=== PATIENT | male | born 1940 | race Caucasian/White ===

== ENCOUNTER 2016-12-14 05:23 | Emergency (ER) | payer MEDICARE ==
[2016-12-14] MEDS ORDERED: Ibuprofen TAB* 600 MG PO ONE (07:04)
[2016-12-14] MEDS ORDERED: Sulfamethox/Trimethoprim DS 800/160* TAB PO ONE (07:05)
[2016-12-14 07:18] VITALS: BP 107/69
--- NOTE | 2016-12-14 07:23 | ED ---
Skin Complaint - HPI Summary HPI Summary: Patient presents with a red bump on his left buttock that began approximately 5 days ago. He has a history of MRSA and worries this is turning into another abscess. He has been applying warm compresses and using ibuprofen for pain. He denies drainage, fevers or red streaks. - History of Current Complaint Chief Complaint: EDRashSkinAbscess Time Seen by Provider: 12/14/16 06:38 Stated Complaint: GROWTH ON LEFT SIDE OF BUTTUCKS Hx Obtained From: Patient Onset/Duration: Started Days Ago, Atraumatic Skin Exposure Onset/Duration: Days Ago Timing: Constant Onset Severity: Mild Current Severity: Moderate Pain Intensity: 6 Skin Location: Other: - left buttock Character: Pain, Redness Aggravating Symptom(s): Touch Alleviating Symptom(s): Nothing Associated Signs & Symptoms: Tenderness Related History: Other: - ingrown hair - Allergy/Home Medications Allergies/Adverse Reactions: Allergies Allergy/AdvReac Type Severity Reaction Status Date / Time No Known Allergies Allergy Verified 12/14/16 05:38 PMH/Surg Hx/FS Hx/Imm Hx Endocrine/Hematology History: Denies: Hx Diabetes Cardiovascular History: Reports: Hx Angina, Hx Coronary Artery Disease, Hx Hypercholesterolemia, Hx Hypertension, Other Cardiovascular Problems/Disorders - AORTIC ANEURYSM, CAD, HIGH CHOLESTEROL Denies: Hx Valvular Heart Disease Respiratory History: Denies: Hx Asthma GI History: Reports: Hx Gastroesophageal Reflux Disease - history of History: Reports: Other Problems/Disorders - LEFT HYDROCELE Denies: Hx Renal Disease Sensory History: Reports: Hx Contacts or Glasses, Hx Hearing Aid - does not use it Opthamlomology History: Reports: Hx Contacts or Glasses Psychiatric History: Reports: Hx Depression - last year since passed been slightly depressed - Surgical History Surgery Procedure, Year, and Place: 2006 double bypass open heart surgery. cholecystectomy Hx Anesthesia Reactions: No - Immunization History Date of Tetanus Vaccine: unknown Infectious Disease History: Yes Infectious Disease History: Reports: Hx of Known/Suspected MRSA - Left knee Denies: Hx Shingles, Hx Tuberculosis, Hx Known/Suspected VRE, Hx Known/ Suspected VRSA, History Other Infectious Disease, Traveled Outside the [place] in Last 30 Days - Family History Known Family History: Positive: Cardiac Disease - Social History Occupation: Retired Lives: With Family Alcohol Use: None Alcohol Amount: 1-2 glasses of wine Hx Substance Use: No Substance Use Type: Reports: None Hx Tobacco Use: Yes Smoking Status (MU): Former Smoker Amount Used/How Often: 1 PPD Length of Time of Smoking/Using Tobacco: 42 YEARS Have You Smoked in the Last Year: No Review of Systems Positive: Other - dime size erythematous indurated raised papule without fluctuance All Other Systems Reviewed And Are Negative: Yes Physical Exam Triage Information Reviewed: Yes Vital Signs On Initial Exam: Initial Vitals Temp Pulse Resp BP Pulse Ox 97.0 F 71 20 138/74 98 12/14/16 05:29 12/14/16 05:29 12/14/16 05:29 12/14/16 05:29 12/14/16 05:29 Vital Signs Reviewed: Yes Appearance: Positive: Well-Appearing, Well-Nourished, Pain Distress Skin: Positive: Warm, Skin Color Reflects Adequate Perfusion, Dry, Tender, Soft , Erythema @ - dime size erythematous indurated raised papule without fluctuance Head/Face: Positive: Normal Head/Face Inspection Eyes: Positive: EOMI, JATINDER, Conjunctiva Clear ENT: Positive: Hearing grossly normal Respiratory/Lung Sounds: Positive: Breath Sounds Present Cardiovascular: Positive: RRR Musculoskeletal: Positive: Strength/ROM Intact. Negative: Edema Left, Edema Right Neurological: Positive: Sensory/Motor Intact, Alert, Oriented to Person Place, Time, NV Bundle Intact Distally, Normal Gait Psychiatric: Positive: Affect/Mood Appropriate AVPU Assessment: Alert - [place] Coma Scale Coma Scale Total: 15 Diagnostics - Vital Signs Vital Signs Temp Pulse Resp BP Pulse Ox 12/14/16 06:30 60 105/66 94 12/14/16 06:00 62 105/70 94 12/14/16 05:52 62 115/72 95 12/14/16 05:42 64 96 12/14/16 05:39 97.4 F 65 16 12/14/16 05:29 97.0 F 71 20 138/74 98 - Laboratory Lab Statement: Any lab studies that have been ordered have been reviewed, and results considered in the medical decision making process. Course/Dx - Differential Diagnoses - Skin Complaint Differential Diagnoses: Abscess, Allergic Reaction, Cellulitis, Contact Dermatitis, Foreign Body, Impetigo, Local Allergic Reaction, MRSA, Urticaria - Diagnoses Provider Diagnoses: Abscess Discharge - Discharge Plan Condition: Stable Disposition: HOME Prescriptions: Sulfamethox/Trimethoprim DS* [Bactrim DS 800/160 TAB*] 1 tab PO BID #19 tab Patient Education Materials: Abscess (ED) Referrals: Aurelia Wylie MD [Primary Care Provider] - Additional Instructions: Please take the medication prescribed until it is completely gone. Use ibuprofen to reduce swelling and pain. Continue warm soaks daily as needed. Follow-up with your primary care provider in 2-3 days for re-evaluation to insure you are improving. Return to the emergency department if symptoms worsen.
== END 2016-12-14 07:19 | disposition home or self-care (01) ==
LOC: ED 05:23
DX: L02.31 Cutaneous abscess of buttock (principal); Z87.891 Personal history of nicotine dependence; I10 Essential (primary) hypertension; E78.00 Pure hypercholesterolemia, unspecified
CPT/HCPCS: 99282; A9270-GY

== ENCOUNTER 2018-01-23 19:45 | Observation (INO) | payer MEDICARE ==
[2018-01-23] MEDS ORDERED: Aspirin 81 mg CHEW TAB* 81 MG TAB.CHEW PO ONE (20:18)
--- NOTE | 2018-01-23 20:32 | RAD ---
Indication: Chest pain. Single frontal view of the chest performed at 2021 hours was reviewed. Comparison is made with previous exam dated February 17, 2016. No mediastinal shift is noted. Heart is of normal size and configuration. Lung pillai appear clear. IMPRESSION: NO ACTIVE CARDIOPULMONARY DISEASE IS NOTED.
[2018-01-23 20:41] LABS: ABS Basophils 0.1 10^3/ul (0-0.2); ABS Eosinophils 0.2 10^3/ul (0-0.6); ABS Lymphocytes 1.1 10^3/ul (1.0-4.8); ABS Monocytes 0.8 10^3/ul (0-0.8); ABS Neutrophils 4.5 10^3/ul (1.5-7.7); ABS Nucleated RBC 0 10^3/ul; Eosinophil % 3.7 % (0-6); Hematocrit 44 % (42-52); Hemoglobin 15.3 g/dl (14.0-18.0); Lymphocyte % 16.8 % (25-47); Mean Corpuscular HGB Conc 35 g/dl (31-36); Mean Corpuscular Hemoglobin 31 pg (27-31); Mean Corpuscular Volume 89 fL (80-94); Mean Platelet Volume 8.1 um3 (7.4-10.4); Nucleated Red Blood Cells % 0; Platelet Count 158 10^3/ul (150-450); Red Blood Count 4.99 10^6/ul (4.0-5.4); Red Cell Distribution Width 14 % (10.5-15); White Blood Count 6.7 10^3/ul (3.5-10.8)
[2018-01-23 20:49] LABS: INR 1.05 (0.77-1.02)
[2018-01-23 21:06] LABS: EGFR Non-African American 82.3 (>60)
[2018-01-23] MEDS ORDERED: Ondansetron 40 MG VIAL* 2 MG/ML 20 ML VIAL IV PRN (22:11)
[2018-01-23] MEDS ORDERED: Acetaminophen TAB* 325 MG PO PRN (22:11)
--- NOTE | 2018-01-23 22:21 | ED ---
Brad Paige Jade, scribed for Tiago Ziegler MD on 01/23/18 at 2021 . HPI Chest Pain - HPI Summary HPI Summary: Pt is a 77 y/o male BIBA with a chief complaint of CP since 19:00. He states he was sitting down playing bingo when the pain started, and is described as mid- sternal radiating to the left shoulder. He took 2 NTG before the ambulance arrived, which resolved the pain. He denies any N/V. Pt has had prior episodes of CP, but this episode is the worst in a while. He had a brief episode this morning for which he took NTG. PMHx MA in 2006, and aortic aneurysm. PSHx CABG in 2006, and aortic stent in November (2 months ago). Pt takes 81 mg Aspirin daily. - History of Current Complaint Chief Complaint: EDChestPainROMI Time Seen by Provider: 01/23/18 20:05 Hx Obtained From: Patient Onset/Duration: Started Hours Ago - 19:00, Resolved Current Severity: None Pain Intensity: 0 Pain Scale Used: 0-10 Numeric Chest Pain Location: Mid Sternal Chest Pain Radiates: Yes Chest Pain Radiates To:: Shoulder - Left Aggravating Factor(s): Nothing Alleviating Factor(s): NTG 123 Associated Signs and Symptoms: Positive: Negative. Negative: Nausea, Vomiting - Allergy/Home Medications Allergies/Adverse Reactions: Allergies Allergy/AdvReac Type Severity Reaction Status Date / Time No Known Allergies Allergy Verified 10/03/17 11:22 Home Medications: Home Medications Aspirin EC TAB* [Ecotrin EC Low Dose 81 MG*] 81 mg PO DAILY 01/23/18 [History Confirmed 01/23/18] Isosorbide Mononitrate ER TAB* [Imdur ER TAB*] 60 mg PO DAILY 01/23/18 [History Confirmed 01/23/18] Losartan TAB* [Cozaar TAB*] 50 mg PO DAILY 01/23/18 [History Confirmed 01/23/18] Metoprolol Succinate XL TAB* [Toprol XL TAB*] 50 mg PO DAILY 01/23/18 [History Confirmed 01/23/18] Simvastatin (NF) [Zocor (NF)] 40 mg PO DAILY 01/23/18 [History Confirmed ] PMH/Surg Hx/FS Hx/Imm Hx Endocrine/Hematology History: Denies: Hx Diabetes Cardiovascular History: Reports: Hx Angina, Hx Coronary Artery Disease, Hx Hypercholesterolemia, Hx Hypertension, Hx Myocardial Infarction, Other Cardiovascular Problems/Disorders - AORTIC ANEURYSM, CAD, HIGH CHOLESTEROL Denies: Hx Valvular Heart Disease Respiratory History: Denies: Hx Asthma GI History: Reports: Hx Gastroesophageal Reflux Disease - history of History: Reports: Other Problems/Disorders - LEFT HYDROCELE Denies: Hx Renal Disease Sensory History: Reports: Hx Contacts or Glasses, Hx Hearing Aid - does not use it Opthamlomology History: Reports: Hx Contacts or Glasses Psychiatric History: Reports: Hx Depression - last year since passed been slightly depressed - Surgical History Surgery Procedure, Year, and Place: 2006 double bypass open heart surgery. cholecystectomy Hx Anesthesia Reactions: No - Immunization History Date of Tetanus Vaccine: unknown Infectious Disease History: No Infectious Disease History: Reports: Hx of Known/Suspected MRSA - Left knee Denies: Hx Shingles, Hx Tuberculosis, Hx Known/Suspected VRE, Hx Known/ Suspected VRSA, History Other Infectious Disease, Traveled Outside the [place] in Last 30 Days - Family History Known Family History: Positive: Cardiac Disease - Social History Alcohol Use: None Alcohol Amount: 1-2 glasses of wine Hx Substance Use: No Substance Use Type: Reports: None Hx Tobacco Use: Yes Smoking Status (MU): Former Smoker Amount Used/How Often: 1 PPD Length of Time of Smoking/Using Tobacco: 42 YEARS Have You Smoked in the Last Year: No Review of Systems Constitutional: Negative Positive: Chest Pain Negative: Vomiting, Nausea All Other Systems Reviewed And Are Negative: Yes Physical Exam - Summary Physical Exam Summary: VITAL SIGNS: Reviewed. GENERAL: ~Patient is a well-developed and nourished male who is lying comfortable in the stretcher. Patient is not in any acute respiratory distress. HEAD AND FACE: No signs of trauma. No ecchymosis, hematomas or skull depressions. No sinus tenderness. EYES: PERRLA, EOMI x 2, No injected conjunctiva, no nystagmus. EARS: Hearing grossly intact. Ear canals and tympanic membranes are within normal limits. MOUTH: Oropharynx within normal limits. NECK: Supple, trachea is midline, no adenopathy, no JVD, no carotid bruit, no c- spine tenderness, neck with full ROM. CHEST: Symmetric, no tenderness at palpation LUNGS: Clear to auscultation bilaterally. No wheezing or crackles. CVS: Regular rate and rhythm, S1 and S2 present, no murmurs or gallops appreciated. ABDOMEN: Soft, non-tender. No signs of distention. No rebound no guarding, and no masses palpated. Bowel sounds are normal. EXTREMITIES: FROM in all major joints, no edema, no cyanosis or clubbing. NEURO: Alert and oriented x 3. No acute neurological deficits. Speech is normal and follows commands. SKIN: Dry and warm Triage Information Reviewed: Yes Vital Signs On Initial Exam: Initial Vitals Temp Pulse Resp BP Pulse Ox 98.6 F 70 20 140/90 96 01/23/18 19:46 01/23/18 19:46 01/23/18 19:46 01/23/18 19:46 01/23/18 19:46 Vital Signs Reviewed: Yes Diagnostics - Vital Signs Vital Signs Temp Pulse Resp BP Pulse Ox 01/23/18 19:46 98.6 F 70 20 140/90 96 - Laboratory Result Diagrams: 01/23/18 20:32 01/23/18 20:32 Lab Statement: Any lab studies that have been ordered have been reviewed, and results considered in the medical decision making process. - Radiology CXR Xray Interpretation: No Acute Changes - NO ACTIVE CARDIOPULMONARY DISEASE IS NOTED. ED physician reviewed this radiology report. Radiology Interpretation Completed By: Radiologist - EKG 19:51 Cardiac Rate: NL - 68 bpm EKG Rhythm: Sinus Rhythm EKG Interpretation: T-wave inversions in septal leads. Re-Evaluation - Re-Evaluation First Eval Re-Evaluation Time: 21:37 Change: Improved Comment: Discussed results and admission. Chest Pain Course/Dx - Course Course Of Treatment: A 77 y/o male BIBA with a CC of CP since 19:00, which radiates to the left shoulder. He took 2 NTG before the ambulance arrived, which resolved the pain. He denies any N/V. Prior episodes of CP, but this episode is the worst in a while. He had a brief episode this morning for which he took NTG. PMHx MA in 2006, and aortic aneurysm. PSHx CABG in 2006, and aortic stent in November (2 months ago). Pt takes 81 mg Aspirin daily. A CXR reveals no cardiopulmonary disease. An EKG reveals T-wave inversions in septal leads. Blood work was done, with results including a 0.00 Troponin. In the ED course pt received Aspirin. Patient will be admitted with follow up from Dr. Somers. Pt is agreeable with this plan. - Diagnoses Provider Diagnoses: Chest pain - Provider Notifications Discussed Care Of Patient With: Michaelle Somers Time Discussed With Above Provider: 22:00 Instructed by Provider To: Other - Accepts patient for admission. Discharge - Sign-Out/Discharge Documenting (check all that apply): Discharge/Admit/Transfer - Admit - Discharge Plan Condition: Stable Disposition: ADMITTED TO [facility] Referrals: Denis Vizcaino MD [Primary Care Provider] - The documentation as recorded by the Brad rome Jade accurately reflects the service I personally performed and the decisions made by , Tiago Ziegler MD.
[2018-01-24 02:40] LABS: ABS Basophils 0.1 10^3/ul (0-0.2); ABS Eosinophils 0.3 10^3/ul (0-0.6); ABS Lymphocytes 1.5 10^3/ul (1.0-4.8); ABS Monocytes 0.9 10^3/ul (0-0.8); ABS Neutrophils 4.5 10^3/ul (1.5-7.7); ABS Nucleated RBC 0 10^3/ul; Eosinophil % 4.1 % (0-6); Hematocrit 42 % (42-52); Hemoglobin 14.3 g/dl (14.0-18.0); Lymphocyte % 20.5 % (25-47); Mean Corpuscular HGB Conc 34 g/dl (31-36); Mean Corpuscular Hemoglobin 30 pg (27-31); Mean Corpuscular Volume 89 fL (80-94); Mean Platelet Volume 8.6 um3 (7.4-10.4); Nucleated Red Blood Cells % 0; Platelet Count 150 10^3/ul (150-450); Red Blood Count 4.73 10^6/ul (4.0-5.4); Red Cell Distribution Width 14 % (10.5-15); White Blood Count 7.2 10^3/ul (3.5-10.8)
[2018-01-24 02:44] LABS: INR 1.06 (0.77-1.02)
[2018-01-24 02:55] LABS: EGFR Non-African American 73.7 (>60)
[2018-01-24] MEDS ORDERED: Heparin VIAL(*) 5000 UNITS/ML VIAL (FIVE THOUSAND) SUBCUT SCH (06:00)
--- NOTE | 2018-01-24 08:10 | HP ---
CC: Dr. Vizcaino; Dr. Wylie * HISTORY AND PHYSICAL: DATE OF ADMISSION: 01/23/18 PRIMARY CARE PROVIDER: Dr. Vizcaino. ATTENDING PHYSICIAN WHILE IN THE HOSPITAL: Dr. Michaelle Wahl * (report dictated by Sage Aparicio NP). CHIEF COMPLAINT: Chest pain. HISTORY OF PRESENT ILLNESS: Mr. Diaz is a 77-year-old male patient. He has a history of CAD; history of AAA, status post stenting of the AAA in November of this year at [facility]. He has a history of hypertension, hyperlipidemia, GERD, and a history of MD. He has also had a CABG. He comes into the ED today. He says at 11 o'clock today, he had an episode of sharp stabbing chest pain in the left chest that did not radiate to the jaw or the arm. He took a nitro, went away, it only lasted a few seconds. He says he has not been having any exertional chest pain. He had no associated nausea or diaphoresis or shortness of breath with, this morning, his chest pain. He went about his day, he actually at 1900 david was calling [employer] for [employer] and while doing this, he was not exerting himself, he started having a sharp chest discomfort again lasting seconds. No associated nausea, but at this time, he did get sweaty. He also took 2 nitro, the pain went away, but given his history and the concern by the fellow [employer] players, they got him into the ER to be evaluated. He denies any calf tenderness. There was no associated shortness of breath. He did state that a couple of days ago, he felt stuffed up and congested. He had a runny nose, but that is improved. There have been no fevers or chills. He has not been coughing. He has no calf tenderness or swelling and he denies feeling any shortness of breath and the discomfort is now gone. He came into the ED today because of his risk factors for acute coronary syndrome. We were asked to evaluate for admission. PAST MEDICAL HISTORY: Significant for: 1. CAD. 2. AAA. 3. Hypertension. 4. Hyperlipidemia. 5. GERD. 6. History of MD. PAST SURGICAL HISTORY: The patient had: 1. CABG. 2. Cholecystectomy. 3. AAA with stent. MEDICATIONS: Home meds include: 1. Zocor 40 mg daily. 2. Cozaar 50 mg daily. 3. Imdur 60 mg daily. 4. Aspirin 81 mg daily. 5. Toprol-XL 50 mg p.o. daily. ALLERGIES TO MEDICATIONS: Include no known drug allergies. FAMILY HISTORY: Mother had a history of MD. Father had a history of pneumonia , both . SOCIAL HISTORY: He is a former smoker. He does drink beer on a nightly basis. Surrogate decision maker is his , Dee Dee. REVIEW OF SYSTEMS: There is no documented fever. He denies having any significant weight change. Denies having any double vision. There is no ear discharge. There was no rhinorrhea today, he did have some a couple of days ago. There was chest pain from HPI. There was no orthopnea or nocturnal dyspnea. No abdominal pain. No nausea, no vomiting. No dysuria, no frequency. No seizure, no loss of consciousness. No pruritus and no skin ulcerations. Review of 14 systems was completed, all others negative. PHYSICAL EXAMINATION GENERAL: At this time, Mr. Diaz is a 77-year-old male patient, appears to be well nourished, well developed. He does not appear to be in any acute distress. He is sitting in the ED stretcher. VITAL SIGNS: Blood pressure 124/84, respirations 23, O2 sat 95%, and temperature 98.6. HEENT: Head: Atraumatic and normocephalic. Eyes: EOMs intact. Sclerae anicteric and not pale. Throat: Oral mucosa appears to be moist. No oropharyngeal erythema. NECK: Supple. LUNGS: Clear to auscultation bilaterally. No wheezes, rales, or rhonchi. HEART: Sounds S1 and S2. He had a regular rate and rhythm. No murmurs, rubs, or gallops. ABDOMEN: Soft, flat, and nontender. Bowel sounds were present. EXTREMITIES: Pulses were 2+ throughout. He had no peripheral edema. No unilateral swelling. He is moving all 4 extremities with 5/5 strength. NEUROLOGIC: He is awake, he is alert, he is oriented x3. Tongue midline. Asp Net C Developer are equal. He had no gross focal deficits. SKIN: Intact. DIAGNOSTIC STUDIES/LAB DATA: WBC today was 6.7, RBC of 4.99, hemoglobin of 15.3, hematocrit of 44, and platelet count of 158. INR was 1.05, PTT of 27.2. Sodium 140, potassium 4, chloride 106, bicarb 25, BUN 8, creatinine 0.90, glucose 111, lactate 1.1, calcium 8.7, mag 2.0. Total bili 1.0, AST 20, ALT 14 , alk phos 70. First troponin was 0. BNP was 47. Albumin was 4.1. He did have a chest x-ray obtained today, impression: No active cardiopulmonary disease is noted. He did have an EKG obtained today, which when I look at it again, last EKG I have is from 2 years ago. EKG of today shows a normal sinus rhythm, but he has a new T- wave inversion in V2. No ST elevation. He also has t wave inverted in V1. When I look back, previously he was flat in V1, he was definitely upright in V2, but that T-wave inversion is now definitely new. Old medical records were reviewed. ASSESSMENT AND PLAN: Mr. Diaz is a 77-year-old male patient with pretty extensive cardiac history coming into the emergency department today with complaints of chest discomfort. We were asked to evaluate for admission. He will be admitted under observation status for: 1. Chest pain. Again, the story is atypical in the sense that he is having a sharp pain that is lasting only seconds and is nonexertional, fortunately. However, he has coronary artery disease, he has a history of a coronary artery bypass graft, hypertension, hyperlipidemia, and he is a former smoker; several risk factors. So, I do believe that he does warrant to get 2 more troponins and an EKG in the morning. In addition to this, go ahead and get a stress test tomorrow and continue to follow. With the recent illness, I will check an ESR and CRP, place him on telemetry. He is already on statin, aspirin, and beta- karrie. We will continue these medications. Should his troponins elevate, I would certainly consider heparin drip and getting a formal Cardiology evaluation. 2. Coronary artery disease. Again, we will continue aspirin, statin, and beta - karrie therapy, and he is on nitrates. 3. History of abdominal aortic aneurysm with recent stenting. I am going to get records from [facility]; I have asked for those. 4. Hypertension. Continue meds as prescribed. It appears to be stable. 5. Hyperlipidemia. I will check lipids in the morning. We will continue statin therapy. 6. Gastroesophageal reflux disease. Continue his current medical regimen. 7. DVT prophylaxis. I have ordered heparin subcu. 8. Code status. Full code. 9. Fluids, electrolytes, and nutrition. He can have a heart-healthy diet and n.p.o. after midnight. TIME SPENT: On the admission 60 minutes, greater than half the time was spent face- to-face with the patient obtaining my history and physical; other half the time was spent going over the plan of care with the patient and implementing plan of care. I did discuss the plan of care with my attending, Dr. Wahl; she is in agreement. SAGE APARICIO, CONSTANCE [id number]/CPS #: [id number] MTDBrittney
[2018-01-24] MEDS ORDERED: Losartan TAB* 25 MG PO SCH (09:00)
[2018-01-24] MEDS ORDERED: Isosorbide Mononitrate ER TAB* 60 MG PO SCH (09:00)
[2018-01-24] MEDS ORDERED: Aspirin EC TAB* 81 MG TAB.EC PO SCH (09:00)
[2018-01-24] MEDS ORDERED: Atorvastatin* 20 MG TAB PO SCH (09:00)
[2018-01-24] MEDS ORDERED: Metoprolol Succinate XL TAB* 50 MG PO SCH (09:00)
--- NOTE | 2018-01-24 11:14 | RAD ---
INDICATION: Chest pain, coronary artery disease. Shortness of breath. Reveals myocardial infarction and coronary artery bypass. Abnormal EKG. COMPARISON: April 22, 2015 TECHNIQUE: 10.300 mCi of Tc-99m Myoview were administered IV. SPECT images of the heart were obtained. Later on the same day. Under the direction of Dr. Rosado, an exercise stress test was performed. The patient achieved a peak heart rate of 128 bpm, 88 % of the age-predicted maximum. Subsequently, the patient was given an IV injection of 25.770 mCi Tc-99m Myoview. SPECT images of the heart were obtained and a gated wall motion study was performed. No CT for attenuation correction due to body habitus and limited range of motion of the arms. FINDINGS: Gated wall motion images were obtained at stress and demonstrate hypokinesia of the septum. The calculated left ventricular ejection fraction is 67 % at stress. Estimated LEFT ventricular end diastolic volume is 82 mL. TID 1.01. Mild diaphragmatic attenuation noted. No stress-induced reversible or fixed LEFT ventricular perfusion defects evident. IMPRESSION: 1. Hypokinesia of the septum. The LEFT ventricular ejection fraction remains within normal limits. Negative for LEFT ventricular dilatation. 2. No stress-induced reversible or fixed LEFT ventricular perfusion defects evident. ASSESSMENT: Low risk based on nuclear portion. Based on imaging criteria from ACC/AHA 2002 Guideline Update for the Management of Patients With Chronic Stable Angina Table 23. Noninvasive Risk Stratification.
[2018-01-24 11:55] VITALS: BP 137/75
--- NOTE | 2018-01-25 10:32 | DS ---
CC: Dr. Vizcaino; Dr. Wylie DISCHARGE SUMMARY: DATE OF ADMISSION: DATE OF DISCHARGE: 01/24/18. HOSPITAL COURSE: This 77-year-old man presented with atypical chest pain. He had a sharp shooting p ain going to the left side of his chest twice on the day of admission, once he was calling [employer] earlier at home. He was not under any particular stress of any kind on either event. He took nitr oglycerin, although he says he not really had this pain before. He thinks he may have had some angin a before and took nitroglycerin for this, but this is certainly a very infrequent recurrence. He did state to me that a couple of days ago, he was helping a friend move some furniture. My impression a t the end of this visit was that this is more likely the culprit rather than heart disease as his his tory was atypical for heart disease. He had no shortness of breath or other associated symptoms. EK G showed some nonspecific ST-T wave changes, 3 troponins were drawn, all of which were within normal limits. He had a nuclear medicine stress test on the day of discharge. There is hyperkinesis of the left septum, but there was no stress- induced perfusion defects. There were no fixed or reversible perfusion defects, ejection fraction was estimated at 67% at stress. The patient was discharged on all his usual home medications and will follow up with Dr. Vizcaino and h is mental health orderly. DISCHARGE DIAGNOSES: 1. Atypical chest pain. 2. Coronary artery disease. 3. Hypertension. 4. Hyperlipidemia. 5. Gastroesophageal reflux disease. DISCHARGE MEDICATIONS: 1. Simvastatin 40 mg daily. 2. Losartan 50 mg daily. 3. Isosorbide mononitrate 60 mg daily. 4. Aspirin 81 mg daily. 5. Metoprolol succinate 50 mg daily. [id number]/[facility] #: [id number]
== END 2018-01-24 13:34 | disposition home or self-care (01) ==
LOC: ED 19:45 → MEDTELE 21:38
PROVIDERS: ADMIT Internal Medicine; ATTEND Internal Medicine
DX: R07.89 Other chest pain (principal); I25.10 Atherosclerotic heart disease of native coronary artery without angina pectoris; I10 Essential (primary) hypertension; E78.5 Hyperlipidemia, unspecified; K21.0 Gastro-esophageal reflux disease with esophagitis; Z79.82 Long term (current) use of aspirin; I25.2 Old myocardial infarction; I71.4 Abdominal aortic aneurysm, without rupture; Z95.828 Presence of other vascular implants and grafts; Z95.5 Presence of coronary angioplasty implant and graft; Z87.891 Personal history of nicotine dependence
CPT/HCPCS: 36415; 71045; 78452; 80048; 80053; 80061; 83036; 83605; 83735; 83880; 84484; 85025; 85610; 85652; 85730; 86140; 87641; 93005; 93017; 99284; A9270-GY; A9502; G0378; J1644

== ENCOUNTER 2018-12-21 12:50 | Emergency (ER) | payer MEDICARE, OTHER ==
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
[2018-12-21 14:48] VITALS: BP 127/77
== END 2018-12-21 14:48 | disposition home or self-care (01) ==
LOC: ED 12:50
DX: S10.93XA Contusion of unspecified part of neck, initial encounter (principal); V49.40XA Driver injured in collision with unspecified motor vehicles in traffic accident, initial encounter; Y92.410 Unspecified street and highway as the place of occurrence of the external cause; I10 Essential (primary) hypertension; I25.2 Old myocardial infarction; I25.10 Atherosclerotic heart disease of native coronary artery without angina pectoris; I71.9 Aortic aneurysm of unspecified site, without rupture; E78.5 Hyperlipidemia, unspecified; K21.9 Gastro-esophageal reflux disease without esophagitis; J44.9 Chronic obstructive pulmonary disease, unspecified; M47.892 Other spondylosis, cervical region; Z87.891 Personal history of nicotine dependence; Z95.1 Presence of aortocoronary bypass graft
CPT/HCPCS: 70450; 72125; 99282

== ENCOUNTER 2019-05-13 10:26 | Day surgery (SDC) | payer MEDICARE ==
[~2019-05-13 10:26] MED LIST: Buffered Lidocaine 1% SYRIN* 1 ML/SYRINGE INTRADERM ONE; Trypan Blue 0.06% SOL* 0.5 ML BTL ONE
[2019-05-13] MEDS ORDERED: fentaNYL* 50 MCG/ML 2 ML VIAL (100 MCG VIAL) ONE (11:20)
[2019-05-13] MEDS ORDERED: Midazolam* 1 MG/ML 2 ML VIAL (2 MG) ONE (11:21)
[2019-05-13 14:19] VITALS: BP 141/85
[2019-05-13] MEDS ORDERED: Tropicamide 1% OPTH.SOL* BTL ONE (14:22)
[2019-05-13] MEDS ORDERED: Ketorolac 0.5% OPHTH (NF) 0.5 % 5 ML BTL ONE (14:22)
[2019-05-13] MEDS ORDERED: Phenylephrine OPHTH SOL 2.5%* 2 ML ONE (14:22)
[2019-05-13] MEDS ORDERED: Cyclopentolate 1% OPTH.SOL* 2 ML BTL ONE (14:22)
[2019-05-13] MEDS ORDERED: Tetracaine 0.5% OPTH.SOL 4 ML* 1 DROP BTL ONE (14:22)
[2019-05-13] MEDS ORDERED: Neomycin/Polymy/Dex OPHTH.OIN* 3.5 GM ONE (14:22)
[2019-05-13] MEDS ORDERED: Lidocaine 1% MPF ** 5 ML VIAL ONE (14:22)
[2019-05-13] MEDS ORDERED: Phenylephr/Ketorolac 1%/0.3% OPH DROP BTL ONE (15:24)
--- NOTE | 2019-05-13 21:49 | OP ---
DATE OF OPERATION: 05/13/19 - [facility] DATE OF : 44 SURGEON: Tristan Heath MD TELEHEALTH NURSE EDUCATOR: None. ANESTHESIA: Topical with intravenous sedation. PRE-OP DIAGNOSIS: Dense cataract, right eye. POST-OP DIAGNOSIS: Dense cataract, right eye. OPERATIVE PROCEDURE: Phacoemulsification and cataract extraction with posterior chamber intraocular lens implant, right eye. COMPLICATIONS: None. ESTIMATED BLOOD LOSS: None. DESCRIPTION OF PROCEDURE: The patient was brought to the operating room and received intravenous sedation. A drop of tetracaine was placed in his right eye. The patient was prepped and draped in the usual sterile fashion for ophthalmic surgery and attention was directed to the right eye where a speculum was placed. It was noted his pupil measured approximately 4.5 mm despite typical dilating protocol prior to the surgery. A mydriatic was added to irrigating solution. It was also noted that his cataract was fairly white and Vision Blue was opened up onto the surgical table. A paracentesis was created at the 11 o'clock position and 0.1 cc of 1% preservative-free lidocaine was injected to the anterior chamber. This was followed by room air and then Vision Blue dye. DisCoVisc was then placed into the anterior chamber. A 2.75 mm keratome was used to create a triplanar clear corneal incision at the 9 o'clock position while the eye was digitally stabilized. A continuous curvilinear capsulorrhexis was created using a cystotome and Utrata forceps. BSS on a cannula was used to hydrodissect the lens and the capsule. Phacoemulsification was performed in a [id number] technique to create 4 fragments, which were removed. Residual cortical material was removed with irrigation and aspiration. The capsular bag was polished. Despite aggressive polishing, a small plaque remained on the posterior capsule. It was felt that further polishing might tear the capsule. Thus, a small plaque was left behind. It was felt if the patient had visual symptoms from it that this plaque could be lasered in the office at a later date using a YAG laser. DisCoVisc was then used to inflate the capsular bag which was intact. An AU00T0 25.5 diopter lens was inserted into the capsular bag. DisCoVisc was then removed using irrigation and aspiration. BSS on a cannula was used to hydrate the corneal stroma and seal the wound. At the end of the case, the pupil was round. The lens was centered and stable. The eye pressure appeared normal and the wound was watertight. The speculum was removed and topical Maxitrol ointment was placed on the surface of the eye. The eye was closed, patched, and shielded, and the patient was sent to the recovery room in stable condition with postoperative instructions and followup appointment given. [id number]/CPS #: [id number] MTDBrittney
== END 2019-05-13 12:42 | disposition home or self-care (01) ==
LOC: OREAST 10:26
PROVIDERS: ATTEND Ophthalmology
DX: H25.11 Age-related nuclear cataract, right eye (principal); I10 Essential (primary) hypertension; I25.810 Atherosclerosis of coronary artery bypass graft(s) without angina pectoris; E78.5 Hyperlipidemia, unspecified; Z87.891 Personal history of nicotine dependence
CPT/HCPCS: A9270-GY; C9447; J2250; J3010; V2632

== ENCOUNTER 2019-05-20 07:19 | Day surgery (SDC) | payer MEDICARE ==
[~2019-05-20 07:19] MED LIST changes: -Trypan Blue 0.06% SOL* 0.5 ML BTL ONE
[2019-05-20] MEDS ORDERED: Midazolam* 1 MG/ML 2 ML VIAL (2 MG) ONE (08:36)
[2019-05-20] MEDS ORDERED: Cyclopentolate 1% OPTH.SOL* 2 ML BTL ONE (09:10)
[2019-05-20] MEDS ORDERED: Ketorolac 0.5% OPHTH (NF) 0.5 % 5 ML BTL ONE (09:10)
[2019-05-20] MEDS ORDERED: Neomycin/Polymy/Dex OPHTH.OIN* 3.5 GM ONE (09:10)
[2019-05-20] MEDS ORDERED: Phenylephrine OPHTH SOL 2.5%* 2 ML ONE (09:10)
[2019-05-20] MEDS ORDERED: Tetracaine 0.5% OPTH.SOL 4 ML* 1 DROP BTL ONE (09:10)
[2019-05-20] MEDS ORDERED: Lidocaine 1% MPF ** 5 ML VIAL ONE (09:10)
[2019-05-20] MEDS ORDERED: Tropicamide 1% OPTH.SOL* BTL ONE (09:10)
[2019-05-20 09:46] VITALS: BP 122/68
--- NOTE | 2019-05-20 11:40 | OP ---
DATE OF OPERATION/DATE OF DICTATION: 05/20/2019 - [facility] DATE OF : 1940. SURGEON: Dr. Tristan Heath. RUBBER ATTACHER: None. ANESTHESIA: Topical with intravenous sedation. PRE-OP DIAGNOSIS: Cataract, left eye. POST-OP DIAGNOSIS: Cataract, left eye. OPERATIVE PROCEDURE: Phacoemulsification and cataract extraction with posterior chamber intraocular lens implant, left eye. COMPLICATIONS: None. BLOOD LOSS: None. DESCRIPTION OF PROCEDURE: The patient was brought to the operating room and received a small amount of intravenous sedation. A drop of Tetracaine was placed in his left eye. He was prepped and draped in the usual sterile fashion for ophthalmic surgery and attention was directed to the left eye where a speculum was placed. A paracentesis was created at the 5 o'clock position and 0.1 cc of 1 percent preservative-free Lidocaine was injected into the anterior chamber followed by DisCoVisc. The eye was digitally stabilized while a 2.75 mm keratome was used to create a triplanar clear corneal incision at the 3 o' clock position. A continuous curvilinear capsulorrhexis was created with a cystotome and Utrata forceps. BSS on a cannula was used to hydrodissect the lens from the capsule. Phacoemulsification was performed in a divide-and- conquer technique to create four fragments which were removed. Residual cortical material was removed with irrigation and aspiration. DisCoVisc was used to inflate the capsular bag and an AUOOTO 25.5 diopter lens was folded and inserted into the capsular bag. DisCoVisc was removed using irrigation and aspiration. BSS on a cannula was used to hydrate the corneal stroma and seal the wound. At the end of the case the pupil was round and the lens was centered. The eye was of normal pressure and the wound was water tight. The speculum was removed and topical Maxitrol ointment was placed on the surface of the eye. The eye was closed, patched and shielded and the patient was sent to the recovery room in stable condition with post operative instructions and follow-up appointment given. [id number]/CPS #: [id number] MTDD
== END 2019-05-20 09:42 | disposition home or self-care (01) ==
LOC: OREAST 07:19
PROVIDERS: ATTEND Ophthalmology
DX: H25.12 Age-related nuclear cataract, left eye (principal); E78.2 Mixed hyperlipidemia; I10 Essential (primary) hypertension; I25.10 Atherosclerotic heart disease of native coronary artery without angina pectoris; Z95.1 Presence of aortocoronary bypass graft; Z79.82 Long term (current) use of aspirin; Z87.891 Personal history of nicotine dependence
CPT/HCPCS: A9270-GY; J2250; V2632

== ENCOUNTER 2024-09-14 17:17 | Inpatient (IN) ==
[2024-09-14 19:39] LABS: ABS Basophils 0.1 10^3/uL (0.0-0.1); ABS Eosinophils 0.2 10^3/uL (0.0-0.5); ABS Lymphocytes 0.8 10^3/uL (1.0-4.8); ABS Monocytes 1.5 10^3/uL (0.0-1.1); ABS Neutrophils 9.5 10^3/uL (1.5-7.6); Eosinophil % 1.6 %; Hematocrit 41.3 % (38-53); Hemoglobin 13.8 g/dL (13.2-16.3); Lymphocyte % 6.8 %; Mean Corpuscular Hemoglobin 29.3 pg (27-33); Mean Corpuscular Hgb Conc 33.5 g/dL (31-36); Mean Corpuscular Volume 87.3 fL (80-97); Mean Platelet Volume 8.8 fL (7.5-11.2); Platelet Count 225 10^3/uL (150-450); Red Blood Count 4.73 10^6/uL (4.06-5.63); Red Cell Distribution Width 13.6 % (12-17); White Blood Count 12.1 10^3/uL (3.6-10.2)
[2024-09-14 20:34] LABS: Albumin 3.7 g/dL (3.5-5.7); Albumin/Globulin Ratio 1.2 (1-3); C Reactive Protein 228.43 mg/L (<8.01); Calcium 8.6 mg/dL (8.6-10.3); Creatinine, Serum 1.47 mg/dL (0.67-1.17); Magnesium 2.2 mg/dL (1.9-2.7); Potassium 4.4 mmol/L (3.5-5.0); Total Bilirubin 2.2 mg/dL (0.2-1.0); Total Protein 6.7 g/dL (6.4-8.9); eGFR CKD-EPI 47.6 (>60)
[2024-09-14 21:55] LABS: ABS Basophils 0.1 10^3/uL (0.0-0.1); ABS Eosinophils 0.2 10^3/uL (0.0-0.5); ABS Lymphocytes 0.9 10^3/uL (1.0-4.8); ABS Monocytes 1.4 10^3/uL (0.0-1.1); ABS Nucleated RBC 0.01 10^3/ul; Eosinophil % 1.7 %; Hematocrit 38.3 % (38-53); Mean Corpuscular Hemoglobin 29.7 pg (27-33); Mean Corpuscular Hgb Conc 33.9 g/dL (31-36); Mean Corpuscular Volume 87.5 fL (80-97); Mean Platelet Volume 8.4 fL (7.5-11.2); Platelet Count 192 10^3/uL (150-450); Red Blood Count 4.38 10^6/uL (4.06-5.63); Red Cell Distribution Width 13.5 % (12-17); White Blood Count 11.6 10^3/uL (3.6-10.2)
[2024-09-14] MEDS: Heparin DRIP 25,000 UNITS BAG 25,000 UNITS/250 ML BAG IV SCH (22:17)
[2024-09-14] MEDS: Heparin 5000 UNITS/ML 1 mL VIAL IV SCH (22:19)
[2024-09-14 22:28] LABS: Creatinine, Serum 1.42 mg/dL (0.67-1.17); eGFR CKD-EPI 49.6 (>60)
[2024-09-15 05:42] LABS: ABS Basophils 0.1 10^3/uL (0.0-0.1); ABS Eosinophils 0.2 10^3/uL (0.0-0.5); ABS Lymphocytes 0.9 10^3/uL (1.0-4.8); ABS Monocytes 1.3 10^3/uL (0.0-1.1); ABS Nucleated RBC 0.01 10^3/ul; Eosinophil % 1.5 %; Hematocrit 39.7 % (38-53); Hemoglobin 13.7 g/dL (13.2-16.3); Lymphocyte % 8.3 %; Mean Corpuscular Hemoglobin 29.9 pg (27-33); Mean Corpuscular Hgb Conc 34.4 g/dL (31-36); Mean Corpuscular Volume 86.9 fL (80-97); Mean Platelet Volume 8.4 fL (7.5-11.2); Nucleated Red Blood Cells % 0.1 %/100WBC (0.0-0.8); Platelet Count 207 10^3/uL (150-450); Red Blood Count 4.57 10^6/uL (4.06-5.63); Red Cell Distribution Width 13.4 % (12-17); White Blood Count 10.5 10^3/uL (3.6-10.2)
[2024-09-15 08:47] LABS: Calcium 8.4 mg/dL (8.6-10.3); Creatinine, Serum 1.32 mg/dL (0.67-1.17); Magnesium 2.2 mg/dL (1.9-2.7); Potassium 4.4 mmol/L (3.5-5.0); eGFR CKD-EPI 54.2 (>60)
[2024-09-15] MEDS: Isosorbide Mononit ER 60mg TAB PO SCH (08:54)
[2024-09-15] MEDS: Lactated Ringers 1000 ml BAG 1,000 ML IV ONE (09:07)
[2024-09-15] MEDS: Haloperidol 5 mg/ml SDV IV/IM 5 MG/ML AMP IV SLOW PU PRN (18:16)
[2024-09-15] MEDS ORDERED: Haloperidol 5 mg/ml SDV IV/IM 5 MG/ML AMP IM PRN (18:17)
[2024-09-15] MEDS: Haloperidol 5 mg/ml SDV IV/IM 5 MG/ML AMP IM ONE (18:56)
[2024-09-16 05:21] LABS: ABS Eosinophils 0.2 10^3/uL (0.0-0.5); ABS Lymphocytes 1.1 10^3/uL (1.0-4.8); ABS Neutrophils 5.7 10^3/uL (1.5-7.6); Eosinophil % 2.4 %; Hematocrit 35.4 % (38-53); Lymphocyte % 13.7 %; Mean Corpuscular Hemoglobin 29.5 pg (27-33); Mean Corpuscular Hgb Conc 33.9 g/dL (31-36); Mean Corpuscular Volume 86.8 fL (80-97); Mean Platelet Volume 8.1 fL (7.5-11.2); Platelet Count 229 10^3/uL (150-450); Red Blood Count 4.08 10^6/uL (4.06-5.63); Red Cell Distribution Width 13.4 % (12-17)
[2024-09-16 06:20] LABS: Albumin 3.2 g/dL (3.5-5.7); Albumin/Globulin Ratio 1.1 (1-3); Calcium 8.4 mg/dL (8.6-10.3); Creatinine, Serum 1.13 mg/dL (0.67-1.17); Globulin 2.8 g/dL (2-4); Potassium 4.1 mmol/L (3.5-5.0); Total Bilirubin 1.3 mg/dL (0.2-1.0); eGFR CKD-EPI 65.3 (>60)
[2024-09-16 09:11] LABS: PSA Screen Ultra Sensitive 4.294 ng/mL (0-4.000)
[2024-09-16] MEDS ORDERED: Lidocaine 1% VIAL 10 MG/ML 30 ML VIAL ONE (11:44)
[2024-09-16] MEDS ORDERED: Iohexol 350 (CONTRAST) 100 ML PAK IV ONE (11:44)
[2024-09-16] MEDS ORDERED: Heparin 2 UNITS/ML 1000 mls 2,000 ML IV ONE (11:44)
[2024-09-16] MEDS ORDERED: fentaNYL 100 mcg/2 ml 50 MCG/ML VIAL ONE (11:50)
[2024-09-16] MEDS ORDERED: Midazolam 5 mg/5 ml VIAL 1 mg/ml 5 ml VIAL (5 mg) ONE (11:50)
[2024-09-16] MEDS ORDERED: Naloxone 0.4 mg VIAL 0.4 mg/ml 1 ml VIAL IV PUSH PRN (12:11)
[2024-09-16] MEDS ORDERED: Flumazenil 0.5 mg/5 ml 0.1 MG/ML 5 ml VIAL IV PRN (12:11)
[2024-09-16] MEDS ORDERED: Heparin 1,000 UNIT/ML 10 ml (10,000 UNITS) CATHLAB/DIALYSIS ONE (12:26)
[2024-09-16] MEDS: Midazolam 10 mg/10 ml VIAL 1 mg/ml 10 ml VIAL (10 mg) IV SLOW PU ONE (14:07)
[2024-09-16] MEDS: fentaNYL 100 mcg/2 ml 50 MCG/ML VIAL IV SLOW PU ONE (14:07)
[2024-09-16 17:41] LABS: INR 1.8 (0.85-1.14)
[2024-09-17 05:56] LABS: ABS Basophils 0.1 10^3/uL (0.0-0.1); ABS Eosinophils 0.3 10^3/uL (0.0-0.5); ABS Monocytes 0.9 10^3/uL (0.0-1.1); ABS Neutrophils 4.3 10^3/uL (1.5-7.6); Eosinophil % 4.5 %; Hematocrit 33.2 % (38-53); Hemoglobin 11.2 g/dL (13.2-16.3); Lymphocyte % 14.8 %; Mean Corpuscular Hemoglobin 29.3 pg (27-33); Mean Corpuscular Hgb Conc 33.6 g/dL (31-36); Mean Corpuscular Volume 87.1 fL (80-97); Mean Platelet Volume 7.9 fL (7.5-11.2); Platelet Count 247 10^3/uL (150-450); Red Blood Count 3.81 10^6/uL (4.06-5.63); Red Cell Distribution Width 13.5 % (12-17); White Blood Count 6.5 10^3/uL (3.6-10.2)
[2024-09-17 06:06] LABS: Activated Partial Thrombo Time 74.6 seconds (26.0-38.0); INR 1.57 (0.85-1.14)
[2024-09-17 07:20] LABS: Creatinine, Serum 1.22 mg/dL (0.67-1.17); eGFR CKD-EPI 59.6 (>60)
[2024-09-17] MEDS: Lactated Ringers 1000 ml BAG 1,000 ML IV ONE (11:53)
[2024-09-17 13:57] LABS: INR 1.56 (0.85-1.14)
[2024-09-17 17:42] LABS: Calcium 7.9 mg/dL (8.6-10.3); Creatinine, Serum 1.09 mg/dL (0.67-1.17); Potassium 4.1 mmol/L (3.5-5.0); eGFR CKD-EPI 68.2 (>60)
[2024-09-17] MEDS: Enoxaparin 80 MG/0.8 ML SYR SUBCUT SCH (19:56)
[2024-09-18 06:23] LABS: ABS Basophils 0.1 10^3/uL (0.0-0.1); ABS Eosinophils 0.3 10^3/uL (0.0-0.5); ABS Lymphocytes 0.9 10^3/uL (1.0-4.8); ABS Monocytes 0.6 10^3/uL (0.0-1.1); ABS Neutrophils 3.3 10^3/uL (1.5-7.6); Eosinophil % 6.2 %; Hematocrit 36.1 % (38-53); Lymphocyte % 17.3 %; Mean Corpuscular Hemoglobin 29.1 pg (27-33); Mean Corpuscular Hgb Conc 33.3 g/dL (31-36); Mean Corpuscular Volume 87.4 fL (80-97); Mean Platelet Volume 8.2 fL (7.5-11.2); Nucleated Red Blood Cells % 0.1 %/100WBC (0.0-0.8); Platelet Count 276 10^3/uL (150-450); Red Blood Count 4.13 10^6/uL (4.06-5.63); Red Cell Distribution Width 13.3 % (12-17); White Blood Count 5.2 10^3/uL (3.6-10.2)
[2024-09-18 06:30] LABS: INR 1.51 (0.85-1.14)
[2024-09-18 06:50] LABS: Creatinine, Serum 1.04 mg/dL (0.67-1.17); eGFR CKD-EPI 72.1 (>60)
[2024-09-18] MEDS ORDERED: Warfarin per PHARMACY **NOTE FOLLOW UP SCH (08:00)
[2024-09-18] MEDS: Warfarin DAILY REMINDER **NOTE FOLLOW UP SCH (08:44)
[2024-09-18 09:55] VITALS: BP 120/62
== END 2024-09-18 11:34 | DRG 271 ==
LOC: ED 17:17 → EDHOLD 17:17 → INTOOBSV 22:40 → SUATTDRO 22:40 → OBSVTOIN 22:40 → MEDTELE 23:58
PROVIDERS: ADMIT Student in an Organized Health Care Education/Training Program; ATTEND Hospitalist